=== PATIENT | female | born 1940 | race Caucasian/White ===

== ENCOUNTER 2023-01-25 17:30 | Outpatient (CLI) | payer MEDICARE | END 2023-01-25 17:31 | disposition home or self-care (01) | LOC: SLEEPLAB 17:30 | PROVIDERS: ATTEND Internal Medicine Critical Care Medicine | DX: G47.33 Obstructive sleep apnea (adult) (pediatric) (principal); R06.83 Snoring; R53.83 Other fatigue | CPT/HCPCS: 95800 ==